=== PATIENT | male | born 1950 ===

== ENCOUNTER 2017-01-17 06:16 | Day surgery (SDC) | payer BC ==
[2017-01-17 07:10] VITALS: O2SAT 98
[2017-01-17] MEDS ORDERED: Propofol 10 mg/ml Inj (20 ML) ONE (08:40)
[2017-01-17] MEDS ORDERED: Sodium Chloride 0.9% 1,000 ML IV SCH (09:30)
[2017-01-17 10:24] VITALS: BP 125/71; PULSE 72; RESP 16; TEMP 97.4
== END 2017-01-17 10:45 | disposition home or self-care (01) ==
LOC: ENDO 06:16
PROVIDERS: ATTEND Internal Medicine Gastroenterology
DX: D12.2 Benign neoplasm of ascending colon (principal); K57.30 Diverticulosis of large intestine without perforation or abscess without bleeding; K64.1 Second degree hemorrhoids; K62.1 Rectal polyp; K20.9 Esophagitis, unspecified; K44.9 Diaphragmatic hernia without obstruction or gangrene; E11.9 Type 2 diabetes mellitus without complications; I10 Essential (primary) hypertension; E78.5 Hyperlipidemia, unspecified; E66.9 Obesity, unspecified; E55.9 Vitamin D deficiency, unspecified; E78.00 Pure hypercholesterolemia, unspecified; K29.50 Unspecified chronic gastritis without bleeding
CPT/HCPCS: 43239; 45380; 45385; 82948; 88305; 88312; 88342; J2704; J7040 ×2